=== PATIENT | male | born 1935 | race Caucasian/White ===

== ENCOUNTER → 2016-06-25 | Outpatient (CLI) | payer MEDICARE, OTHER ==
[~2016-06-25] MED LIST: ALTACE DPS10 MG PO; ASPIR 8181 MG PO; AUGMENTIN875 MG PO; DELTASONE DPS1 MG PO; DULERA 200/58.8 GM IH; DUONEB DPS3 ML IH; NEO-BACIT-POLY3.5 GM TP; PRAVACHOL80 MG PO; REFRESH CLASSI1 EACH OS; [UNRECOGNIZED DRUG - OTHER] OU
--- NOTE | ~2016-06-25 | CST ---
Cardiac Perfusion Imaging Demographics Patient Name BRANDY Jolley Gender Male Patient Number [id number] Race Visit Number [id number] Ethnicity [employer] Room Number Accession Number [id number] Height 76 inches Date of 1935 Weight 197 pounds Age 80 year(s) BSA 2.2 m Referring Physician Evelia Keating MD BMI 23.98 kg/m Interpreting Physician [employer] Date of study 06/25/2016 Radiology Shawna Burgos M.D. 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 Risks, complications and alternative treatments were reviewed. Written consent was obtained. Medications Reviewed with Patient prior to Procedure. Procedure Procedure Type: Nuclear Stress Test:Cardiac Study SF Procedure Start time: 06/25/2016 07:15 Indications: Chest pain, Shortness of breath and History of CAD. Risk Factors The patient risk factors include:prior PCI;prior heart failure and prior SD . Conclusions Summary Perfusion Images: The overall quality of the study is good. Left ventricular cavity is noted to be normal on the stress and rest studies. There is no evidence of abnormal lung activity. The right ventricle is not visualized and cannot be assessed. Stress SPECT images demonstrate homogenous tracer distribution throughout the myocardium. Rest SPECT images demonstrate homogenous tracer distribution throughout the myocardium. Gated SPECT imaging reveals normal myocardial thickening and wall motion. The left ventricular ejection fraction was calculated to be 64%. Impression 1. Normal myocardial perfusion. 2. Normal left ventricular systolic function with an ejection fraction of 64 %. Stress Protocols Resting ECG Sinus bradycardia. Resting HR:46 bpm Resting BP:120/74 mmHg Stress Protocol:Pharmacologic Predicted HR: 140 bpm Test duration: 06:00 min Reason for termination:Infusion complete Symptoms No symptoms with Lexiscan infusion. Complications Procedure complication: None. Stress Interpretation Appropriate hemodynamic response to Lexiscan. No significant ST-T wave changes with Lexiscan. ECG portion is negative for ischemia by diagnostic criteria. Imaging Results Summed scores - Summed stress score: 0 - Summed rest score: 2 - Summed difference score: -2 Stress ejection Ejection fraction:64 % EDV :149 ml ESV :53 ml Stroke volume :96 ml LV mass :149 gr Imaging Protocols Rest Stress Isotope:Tc99m Myoview IV Isotope: Tc99m Myoview IV Isotope dose:10.5 mCi Isotope dose:31 mCi Date:06/25/2016 06:15 Date:06/25/2016 07:20 Technique: SPECT Technique: Gated Supine SPECT Supine Scan Time:45-60 minutes post Scan Time:15-30 minutes post injection injection Procedure Medications - Regadenoson (Lexiscan) 0.4 mg IV over 10-15 sec. I.V. 0.4 mg. Medications administered per verbal order and read back to physician prior to administration. Medical History Admission Data Admission date: 06/25/2016 Admission Time: 05:51 Hospital Status: Outpatient. Signatures
== END | disposition home or self-care (01) ==
LOC: CARD 05:51 → RAD.S 07:15
DX: R07.9 Chest pain, unspecified (principal); M48.55XA Collapsed vertebra, not elsewhere classified, thoracolumbar region, initial encounter for fracture; M47.816 Spondylosis without myelopathy or radiculopathy, lumbar region; M41.9 Scoliosis, unspecified; M54.5 Low back pain